=== PATIENT | male | born 1965 ===

== ENCOUNTER 2024-03-20 05:57 | Day surgery (SDC) | payer OTHER ==
[~2024-03-20] VITALS: Ht 170.2 cm; Wt 83.5 kg
[~2024-03-20 05:57] MED LIST: CHILDREN'S ASPI81 MG PO; CRESTOR5 MG PO
[2024-03-20] MEDS ORDERED: COLACE100 MG PO (08:38)
[2024-03-20] MEDS ORDERED: NEURONTIN300 MG PO (08:38)
[2024-03-20] MEDS ORDERED: TRAM1TAB98 PO (08:38)
[2024-03-20] MEDS ORDERED: METRONIDAZOLE/SODIUM CHLORIDE 500 MG/100 ML PIGGYBACK IV ONE (08:45)
[2024-03-20] MEDS ORDERED: CEFTRIAXONE SODIUM 2,000 MG VIAL IV ONE (08:45)
[2024-03-20] MEDS ORDERED: POVIDONE-IODINE 118 ML BOTT TOP ONE (09:00)
[2024-03-20] MEDS ORDERED: DIBUCAINE 15 GM OINT..GM. TUBE RECTAL ONE (09:00)
[2024-03-20] MEDS ORDERED: BUPIVACAINE HCL 30 ML VIAL IJ ONE (09:00)
[2024-03-20] MEDS ORDERED: LIDOCAINE HCL 1%/EPINEPHRINE 20ML VIAL IJ ONE (09:00)
[2024-03-20] MEDS ORDERED: HEMOSTATIC MATRIX 1 KIT KIT TOP ONE (09:00)
== END 2024-03-20 14:40 | disposition home or self-care (01) ==
LOC: CIR.AMB 05:57
PROVIDERS: ATTEND Surgery
DX: K64.3 Fourth degree hemorrhoids (principal); K64.4 Residual hemorrhoidal skin tags; K64.8 Other hemorrhoids; K62.89 Other specified diseases of anus and rectum; K62.5 Hemorrhage of anus and rectum